=== PATIENT | male | born 1960 | race Asian ===

== ENCOUNTER 2018-09-30 05:51 | Day surgery (SDC) | payer OTHER ==
[2018-09-30] MEDS ORDERED: MIDAZOLAM 1 MG/ML 2 ML INJ (07:54)
[2018-09-30] MEDS ORDERED: FENTAnyl 50 MCG/ML VIAL (07:55)
== END 2018-09-30 10:00 | disposition home or self-care (01) ==
LOC: GIL 05:51
DX: K44.9 Diaphragmatic hernia without obstruction or gangrene (principal); K21.9 Gastro-esophageal reflux disease without esophagitis; I10 Essential (primary) hypertension
CPT/HCPCS: 43239; 88305; 88312